=== PATIENT | male | born 1940 | race Caucasian/White ===

== ENCOUNTER → 2017-09-11 | Outpatient (CLI) | payer MEDICARE, BC ==
[2017-09-11 10:48] LABS: BASO % 1 % (0-3); EOS # 0.2 x10^3/uL (0.0-0.7); EOS % 5 % (0-3); HEMATOCRIT 40.9 % (39.0-53.0); HEMOGLOBIN 13.7 g/dL (13.0-17.5); LYMPH # 1.3 x10^3/uL (1.0-4.8); LYMPH % 28 % (24-48); MEAN CORPUSCULAR HEMOGLOBIN 31 pg (25-35); MEAN CORPUSCULAR HGB CONC 34 g/dL (31-37); MEAN CORPUSCULAR VOLUME 91 fL (79-100); MONO # 0.5 x10^3/uL (0.0-1.1); MONO % 11 % (0-9); NEUT # 2.6 x10^3uL (1.8-7.7); NEUT % 55 % (31-73); PLATELET COUNT 214 x10^3/uL (140-400); RED BLOOD COUNT 4.48 x10^6/uL (4.30-5.70); RED CELL DISTRIBUTION WIDTH 16.7 % (11.5-14.5); WHITE BLOOD COUNT 4.6 x10^3/uL (4.0-11.0)
[2017-09-11 10:51] LABS: CALCIUM 8.5 mg/dL (8.5-10.1); GFR 72.8; POTASSIUM 4.2 mmol/L (3.5-5.1)
== END | disposition home or self-care (01) ==
LOC: LAB 10:19
PROVIDERS: ATTEND Internal Medicine Cardiovascular Disease
DX: I10 Essential (primary) hypertension (principal)
CPT/HCPCS: 36415; 80048; 85025

== ENCOUNTER → 2017-09-25 | Outpatient (CLI) | payer MEDICARE, BC ==
--- NOTE | 2017-09-25 12:21 | RAD ---
EXAM: Right knee, 2 views. HISTORY: Pain. COMPARISON: None. FINDINGS: Frontal and lateral views of the right knee are obtained. There is no fracture, dislocation or subluxation. There is a small right knee joint effusion. IMPRESSION: 1. Small right knee effusion. 2. No acute osseous finding. Electronically signed by: Yaquelin Maher MD (09/25/2017 12:18 PM) [id number]
== END | disposition home or self-care (01) ==
LOC: PMG 11:59
PROVIDERS: ATTEND Physician Assistant
DX: M25.461 Effusion, right knee (principal); I10 Essential (primary) hypertension
CPT/HCPCS: 73560

== ENCOUNTER → 2020-06-15 | Outpatient (CLI) | payer MEDICARE, BC ==
--- NOTE | 2020-06-15 12:09 | RAD ---
EXAM: Right shoulder, 3 views. HISTORY: Pain. COMPARISON: None. FINDINGS: 3 views of the right shoulder obtained. There is no acute fracture, dislocation or subluxat ion. There is decreased subacromial space and a single projection which is likely due to image projec tion rather than due to a rotator cuff tear. There is degenerative change involving the greater tuber osity at the rotator cuff insertion and the glenoid. There is minimal degenerative spurring involving the distal clavicle at the acromioclavicular joint. There are median sternotomy changes. There is in strumented fusion involving the thoracic spine. There are multiple chronic appearing right rib fractu res. IMPRESSION: 1. 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 2. Multiple chronic appearing right rib fractures. Electronically signed by: Yaquelin Maher MD (06/15/2020 12:06 PM) [id number]
== END ==
LOC: RAD 11:47
PROVIDERS: ATTEND Physician Assistant
DX: M19.011 Primary osteoarthritis, right shoulder (principal); M77.8 Other enthesopathies, not elsewhere classified
CPT/HCPCS: 73030